=== PATIENT | male | born 1955 | race Caucasian/White ===

== ENCOUNTER → 2018-12-23 | Outpatient (CLI) | payer OTHER ==
[~2018-12-23] VITALS: Ht 170.2 cm; Wt 102.7 kg
[~2018-12-23] MED LIST: ASPIRIN E.C. 8181 MG PO; BYDUREON PEN2 MG SQ; CELEXA 20MG20 MG/TAB PO; COZAAR100 MG PO; CRESTOR40 MG PO; FIBER0.52 GM PO; HCTZ 25MG TAB25 MG PO; JANUMET 1000 MG1 TA1 PO; MASON NATURAL1200 MG PO; MULTI-VITAMIN W1 TA1 PO; PLAVIX 75MG TAB75 MG PO; PROTONIX 40MG T40 MG PO; ZYRTEC 10MG10 MG PO
[2018-12-23 09:17] VITALS: BP 116/84; PULSE 88
== END ==
LOC: LIGHT 12-09 11:19
DX: E88.81 Metabolic syndrome and other insulin resistance (principal); E11.65 Type 2 diabetes mellitus with hyperglycemia; I25.10 Atherosclerotic heart disease of native coronary artery without angina pectoris; E66.9 Obesity, unspecified; Z68.35 Body mass index [BMI] 35.0-35.9, adult; Z71.3 Dietary counseling and surveillance
CPT/HCPCS: G0463

== ENCOUNTER → 2019-01-11 | Outpatient (CLI) | payer OTHER | LOC: LIGHT 10:53 | DX: E11.65 Type 2 diabetes mellitus with hyperglycemia (principal); I25.10 Atherosclerotic heart disease of native coronary artery without angina pectoris; E66.9 Obesity, unspecified; Z68.35 Body mass index [BMI] 35.0-35.9, adult; Z71.3 Dietary counseling and surveillance ==